=== PATIENT | female | born 2000 ===

== ENCOUNTER 2021-12-24 04:19 | Day surgery (SDC) | payer OTHER ==
[2021-12-20 14:59] VITALS: BMI 28.3
[2021-12-24] MEDS ORDERED: oxyCODONE HCL 5 MG TABLET PO PRN ×2 (08:58→10:03)
[2021-12-24] MEDS ORDERED: ONDANSETRON 4 MG/2 ML VIAL IVPUSH PRN ×2 (08:58→10:03)
[2021-12-24] MEDS ORDERED: LACTATED RINGERS SOLUTION 1,000 ML IV SCH (09:00)
[2021-12-24] MEDS ORDERED: MIDAZOLAM HCL 2 MG/2 ML SINGLE DOSE VIAL ONE (09:10)
[2021-12-24] MEDS ORDERED: PROPOFOL 20 ML ONE (09:27)
[2021-12-24] MEDS ORDERED: IBUPROFEN 600 MG TABLET (FP) PO PRN (10:03)
[2021-12-24] MEDS ORDERED: IBUPROFEN 800 MG/8 ML IJ IVPB PRN (10:03)
[2021-12-24] MEDS ORDERED: ELECTROLYTE-148 SOLN 1,000 ML IV SCH (10:15)
[2021-12-24 12:47] VITALS: BP 104/50; PULSE 75; TEMP 97.8
== END 2021-12-24 12:47 | disposition home or self-care (01) ==
LOC: JASU-SURG 04:19
PROVIDERS: ATTEND Obstetrics & Gynecology
PROC: 0UDB7ZX Extraction of Endometrium, Via Natural or Artificial Opening, Diagnostic (ICD-10-PCS; 2021-12-24)
PROC: 0UB98ZX Excision of Uterus, Via Natural or Artificial Opening Endoscopic, Diagnostic (ICD-10-PCS; principal; 2021-12-24 09:00)
DX: N93.9 Abnormal uterine and vaginal bleeding, unspecified (principal); N84.0 Polyp of corpus uteri
CPT/HCPCS: 81025; 88305-TC; 94760